=== PATIENT | female | born 1985 | race Caucasian/White ===

== ENCOUNTER 2018-06-18 22:38 | Inpatient (IN) | payer MEDICAID ==
[~2018-06-18] VITALS: Ht 171.4 cm; Wt 57.6 kg
[2018-06-18 22:50] VITALS: BP_SYST 124
[2018-06-18] MEDS ORDERED: NACL 0.9% 1,000 ML IV ONE (23:15)
[2018-06-18 23:45] LABS: BILIRUBIN,URINE NEGATIVE (NEGATIVE); BLOOD, URINE 2+ (NEGATIVE); CLARITY/URINE CLEAR (CLEAR); COLOR,URINE YELLOW (YELLOW); GLUCOSE,URINE NEGATIVE (NEGATIVE); KETONES,URINE NEGATIVE (NEGATIVE); LEUKOCYTE ESTERASE ,URINE 1+ (NEGATIVE); NITRITE, URINE NEGATIVE (NEGATIVE); PROTEIN URINE NEGATIVE (NEGATIVE)
[2018-06-18 23:55] LABS: BACTERIA,URINE RARE /HPF (None Seen)
[2018-06-19 00:02] LABS: CREATININE 0.52 mg/dL (0.55-1.30); POTASSIUM 3.5 mmol/L (3.5-5.1)
[2018-06-19 00:03] LABS: BASOPHILS # (AUTO) 0.1 K/uL (0.0-0.2); EOSINOPHILS # (AUTO) 0.4 K/uL (0.0-0.4); EOSINOPHILS % (AUTO) 4.7 % (0.0-4.0); HEMATOCRIT 40.7 % (36-48); HEMOGLOBIN 13.4 g/dL (12.0-16.0); LYMPHOCYTES # (AUTO) 2.7 K/uL (1.0-5.5); LYMPHOCYTES % (AUTO) 32.7 % (20.5-51.5); MEAN CORPUSCULAR HEMOGLOBIN 31 pg (27-31); MEAN CORPUSCULAR HGB CONC 33 % (32-36); MEAN CORPUSCULAR VOLUME 93 fL (79.0-98.0); MONOCYTES # (AUTO) 0.4 K/uL (0.0-1.0); MONOCYTES % (AUTO) 5.4 % (1.7-9.3); NEUTROPHILS # (AUTO) 4.6 K/uL (1.8-7.7); NEUTROPHILS % (AUTO) 56.2 % (40.0-70.0); PLATELET COUNT (AUTO) 244 K/uL (130-430); RED BLOOD CELL COUNT(AUTO) 4.39 MIL/uL (4.2-6.2); RED CELL DISTRIBUTION WIDTH 12.1 % (9.0-15.0); WHITE BLOOD COUNT (AUTO) 8.2 K/uL (4.8-10.8)
[2018-06-19] MEDS ORDERED: ACETAMINOPHEN 325 MG TABLET PO ONE (00:15)
[2018-06-19] MEDS ORDERED: ONDANSETRON HCL 4 MG/2 ML VIAL IVP ONE (00:15)
[2018-06-19 00:30] LABS: ALBUMIN 3.8 g/dL (3.4-4.8); TOTAL BILIRUBIN 0.4 mg/dL (0.0-1.0)
[2018-06-19] MEDS ORDERED: MORPHINE 4 MG/ML INJ. SYRINGE IVP ONE (04:30)
[2018-06-19] MEDS ORDERED: HYDROcodone/ACETAMIN 10-325 MG TAB PO ONE (05:15)
[2018-06-19] MEDS ORDERED: KETOROLAC TROMETHAMINE 30 MG VIAL IVP PRN ×2 (05:15→11:15)
[2018-06-19 05:48] VITALS: BP_SYST 111
[2018-06-19 05:53] VITALS: BP_SYST 108
[2018-06-19] MEDS: LR 1,000 ML IV SCH ×2 (06:09→14:00)
[2018-06-19 07:30] VITALS: BP_SYST 93
[2018-06-19] MEDS ORDERED: fentaNYL CITRATE/PF 100 MCG/2 ML AMP IVP ONE (10:50)
[2018-06-19] MEDS ORDERED: WATER FOR IRRIGATION,STERILE 1,000 ML IRRIG.SOLN IR ONE (10:50)
[2018-06-19] MEDS ORDERED: MIDAZOLAM HCL 5 MG/5 ML VIAL IVP ONE (10:50)
[2018-06-19] MEDS ORDERED: METHYLERGONOVINE MALEATE 0.2 MG/ML AMP IM ONE (10:50)
[2018-06-19] MEDS ORDERED: SEVOFLURANE 15 MIN GAS INH ONE (10:50)
[2018-06-19] MEDS ORDERED: SILVER NITRATE APPLICATOR 1 STICK STICK..EA. TP ONE (10:50)
[2018-06-19] MEDS ORDERED: ONDANSETRON HCL 4 MG/2 ML VIAL IVP PRN (11:15)
[2018-06-19] MEDS ORDERED: fentaNYL CITRATE/PF 100 MCG/2 ML AMP IVP PRN ×2 (11:15)
[2018-06-19] MEDS ORDERED: IBUP-1971 PO (11:39)
[2018-06-19] MEDS ORDERED: fentaNYL CITRATE/PF 100 MCG/2 ML AMP ONE (12:02)
[2018-06-19 12:32] VITALS: BP_SYST 122
[2018-06-19 12:51] VITALS: BP_SYST 122
== END 2018-06-19 15:40 | disposition home or self-care (01) | DRG 544 ==
LOC: SED 22:38 → SMU 06-19 05:09
PROVIDERS: ADMIT Obstetrics & Gynecology; ATTEND Obstetrics & Gynecology
PROC: 10D17ZZ Extraction of Products of Conception, Retained, Via Natural or Artificial Opening (ICD-10-PCS; principal; 2018-06-19 11:00)
DX: O03.4 Incomplete spontaneous abortion without complication (principal); F17.210 Nicotine dependence, cigarettes, uncomplicated; K21.9 Gastro-esophageal reflux disease without esophagitis; L40.9 Psoriasis, unspecified; O99.331 Smoking (tobacco) complicating pregnancy, first trimester; O99.611 Diseases of the digestive system complicating pregnancy, first trimester; O99.711 Diseases of the skin and subcutaneous tissue complicating pregnancy, first trimester
CPT/HCPCS: 36415; 76801; 76817; 80053; 81000-TC; 81025; 84702-TC; 85025; 86900; 86901; 88305; 96361; 96374; 99285; J2210; J2250; J2270; J2405; J3010; J7120

== ENCOUNTER 2019-07-25 15:46 | Emergency (ER) | payer MEDICAID ==
[~2019-07-25 15:46] MED LIST: IBUP-1971 PO
[2019-07-25 16:50] LABS: BASOPHILS # (AUTO) 0.1 K/uL (0.0-0.2); BASOPHILS % (AUTO) 0.8 % (0.0-2.0); EOSINOPHILS # (AUTO) 0.3 K/uL (0.0-0.4); EOSINOPHILS % (AUTO) 3.8 % (0.0-4.0); HEMATOCRIT 44.2 % (36-48); HEMOGLOBIN 14.6 g/dL (12.0-16.0); LYMPHOCYTES % (AUTO) 30.2 % (20.5-51.5); MEAN CORPUSCULAR HEMOGLOBIN 31 pg (27-31); MEAN CORPUSCULAR HGB CONC 33 % (32-36); MEAN CORPUSCULAR VOLUME 92 fL (79.0-98.0); MONOCYTES # (AUTO) 0.5 K/uL (0.0-1.0); MONOCYTES % (AUTO) 7.3 % (1.7-9.3); NEUTROPHILS # (AUTO) 3.9 K/uL (1.8-7.7); NEUTROPHILS % (AUTO) 57.9 % (40.0-70.0); PLATELET COUNT (AUTO) 220 K/uL (130-430); RED BLOOD CELL COUNT(AUTO) 4.79 MIL/uL (4.2-6.2); WHITE BLOOD COUNT (AUTO) 6.7 K/uL (4.8-10.8)
[2019-07-25 17:15] LABS: ANION GAP 8 (5-15); CALCIUM 9.1 mg/dL (8.4-11.0); CHLORIDE 101 mmol/L (98-107); CREATININE 0.64 mg/dL (0.55-1.30); GLUCOSE 91 mg/dL (70-99); POTASSIUM 3.9 mmol/L (3.5-5.1); SODIUM SERUM 134 mmol/L (136-145); UREA NITROGEN, BLOOD 11 mg/dL (8-21)
[2019-07-25 17:20] LABS: ALANINE AMINOTRANSFERASE 15 U/L (12-78); ALBUMIN 4.1 g/dL (3.4-4.8); ASPARTATE AMINOTRANSFERASE 17 U/L (10-37); TOTAL BILIRUBIN 0.6 mg/dL (0.0-1.0)
[2019-07-25 17:22] LABS: GFR AFRICAN AMERICAN 136 mL/min (>90)
== END 2019-07-25 17:17 | disposition left against medical advice (07) ==
LOC: SED 15:46
DX: I10 Essential (primary) hypertension (principal); Z53.21 Procedure and treatment not carried out due to patient leaving prior to being seen by health care provider
CPT/HCPCS: 36415; 80053; 84484; 85025

== ENCOUNTER 2021-09-23 19:08 | Emergency (ER) | payer MEDICAID ==
[~2021-09-23] VITALS: Ht 170.2 cm; Wt 72.6 kg
[2021-09-23 19:21] VITALS: BP_SYST 135
--- NOTE | 2021-09-23 20:36 | NUR ---
Pt brought by self,A&Ox4, pt presents to ER with sore throat since today, afebrile, skin pink and warm, cap refill <3, VSS.
--- NOTE | 2021-09-23 21:32 | NUR ---
Patient to [facility] for evaluation.
--- NOTE | 2021-09-23 21:48 | NUR ---
ER at bedside examining patient.
[2021-09-23] MEDS ORDERED: IBUPROFEN 800 MG TABLET PO ONE (22:00)
[2021-09-23] MEDS ORDERED: AMOXICILLIN 500 MG CAPSULE PO ONE (22:00)
[2021-09-23] MEDS ORDERED: DEXAMETHASONE SOD PHOSPHATE 10 MG/ML VIAL PO ONE (22:00)
--- NOTE | 2021-09-23 22:00 | NUR ---
Mary Grace godfrey in [facility] - 09/24/21 at 0144 by [email or web address] Patient to [facility] for evaluation.
[2021-09-23] MEDS ORDERED: AMOX500C2 PO (22:01)
[2021-09-24 00:28] VITALS: BP_SYST 128
--- NOTE | 2021-09-24 00:28 | NUR ---
Patient given written and verbal discharge instructions and verbalizes understanding. ER MD discussed with patient the results and treatment provided. Patient in stable condition. ID arm band removed. Rx of AMOXICILLIN given. Patient educated on pain management and to follow up with PMD. Pain Scale 0/10 Opportunity for questions provided and answered. Medication side effect fact sheet provided.
== END 2021-09-24 00:28 | disposition home or self-care (01) ==
LOC: SED 19:08
DX: J02.9 Acute pharyngitis, unspecified (principal); Z20.822 Contact with and (suspected) exposure to COVID-19
CPT/HCPCS: 36415; 86403; 87081; 87426; 99284; J1100

== ENCOUNTER 2022-11-09 17:34 | Emergency (ER) | payer MEDICAID ==
[~2022-11-09] VITALS: Ht 172.7 cm; Wt 72.6 kg
[~2022-11-09 17:34] MED LIST changes: +ACET-2634 PO; +AMOX500C2 PO; +ANT30 PO; +FAMO40TA71 PO; +HYDR-3917 PO; +ONDA-8 TL
[2022-11-09 17:45] VITALS: BP_SYST 139
--- NOTE | 2022-11-09 17:45 | NUR ---
Patient to ER bed 01 to gown for evaluation. Side rails up. Report given to AJITH BOWLING.
--- NOTE | 2022-11-09 17:50 | NUR ---
PT BIB FROM HOME C/O RIGHT SIDED TOOTH PAIN, STATES SHE HAS NEEDED TO GET DENTURES BUT IS AFRAID OF GOING TO THE DENTIST. PT STATES SHE HAS HAD PAIN X 5 DAYS. MULTIPLE BROKEN TEETH. PT IS AOX4, AMBULATORY, VSS
--- NOTE | 2022-11-09 18:10 | NUR ---
ER DR. SRTEET EXAMINING PT
[2022-11-09] MEDS ORDERED: CHLO473M5 PO ×2 (18:23→23:28)
[2022-11-09] MEDS ORDERED: OXYC-128 PO ×2 (18:23→23:28)
[2022-11-09] MEDS ORDERED: PENI250T2 PO ×2 (18:23→23:28)
[2022-11-09] MEDS ORDERED: IBUP-1970 PO (18:28)
[2022-11-09] MEDS ORDERED: OXYCODONE/ACETAMINOPHEN 5-325 TABLET PO ONE (18:30)
[2022-11-09] MEDS ORDERED: PENICILLIN V POTASSIUM 250 MG TABLET PO ONE (18:30)
[2022-11-09] MEDS ORDERED: LIDOCAINE VISCOUS 2%, 15 ML UDC MM ONE (18:30)
--- NOTE | 2022-11-09 18:53 | NUR ---
Patient given written and verbal discharge instructions and verbalizes understanding. ER MD discussed with patient the results and treatment provided. Patient in stable condition. ID arm band removed. Rx of PERIDEX, IBUPROFEN, PERCOCET AND PERIDEX given. Patient educated on pain management and to follow up with PMD. Pain Scale 0/10. Opportunity for questions provided and answered. Medication side effect fact sheet provided.
[2022-11-09 18:56] VITALS: BP_SYST 139
[2022-11-09] MEDS ORDERED: IBUP-1971 PO (23:28)
== END 2022-11-09 18:56 | disposition home or self-care (01) ==
LOC: SED 17:34
DX: K02.9 Dental caries, unspecified (principal); K08.89 Other specified disorders of teeth and supporting structures; I10 Essential (primary) hypertension; F17.210 Nicotine dependence, cigarettes, uncomplicated; Z79.899 Other long term (current) drug therapy
CPT/HCPCS: 99283; J2001

== ENCOUNTER 2022-11-09 22:44 | Emergency (ER) | payer MEDICAID ==
[~2022-11-09] VITALS: Ht 172.7 cm; Wt 73.0 kg
[~2022-11-09 22:44] MED LIST changes: +CHLO473M5 PO; +IBUP-1970 PO; +OXYC-128 PO; +PENI250T2 PO
--- NOTE | 2022-11-09 23:10 | NUR ---
ER examining patient in the triage room.
[2022-11-09 23:17] VITALS: BP_SYST 133
--- NOTE | 2022-11-09 23:17 | NUR ---
Patient triaged and placed in waiting room. VSS and patient appears in no acute distress at this time. Accompanied by fam member, awaiting available bed, and MD notified of need for MSE.
[2022-11-09] MEDS ORDERED: IBUP-1971 PO (23:28)
[2022-11-09] MEDS ORDERED: CHLO473M5 PO (23:28)
[2022-11-09] MEDS ORDERED: OXYC-128 PO (23:28)
[2022-11-09] MEDS ORDERED: PENI250T2 PO (23:28)
--- NOTE | 2022-11-09 23:34 | NUR ---
Note undone in EDM - 11/10/22 at 0044 by MICHELLE Patient given written and verbal discharge instructions and verbalizes understanding. ER discussed with patient the results and treatment provided. Patient in stable condition. ID arm band removed. Rx of Peridex,Ibuprofen,Percocet,Penicillin V given. Patient educated on pain management and to follow up with PMD. Pain Scale 6/10. Opportunity for questions provided and answered. Medication side effect fact sheet provided.
--- NOTE | 2022-11-10 00:20 | NUR ---
Patient to ER bed h1 to gown for evaluation. Side rails up.
[2022-11-10] MEDS ORDERED: AMOXICILLIN/POTASSIUM CLAV 875 MG TABLET PO ONE (00:30)
[2022-11-10] MEDS ORDERED: HYDROcodone/ACETAMIN 5-325 MG TAB (NORCO/ VICODIN) PO ONE (00:30)
--- NOTE | 2022-11-10 00:41 | NUR ---
Pt states pain free.Denies Morphine ordered by Dr Rodriguez.Dr Rodriguez made notified.
[2022-11-10 00:43] VITALS: BP_SYST 133
--- NOTE | 2022-11-10 00:43 | NUR ---
Patient given written and verbal discharge instructions and verbalizes understanding. ER MD discussed with patient the results and treatment provided. Patient in stable condition. ID arm band removed. Rx of Peridex,Ibuprofen,Percocet,Penicillin V given. Patient educated on pain management and to follow up with PMD. Pain Scale 6/10. Opportunity for questions provided and answered. Medication side effect fact sheet provided.
[2022-11-10] MEDS ORDERED: ONDANSETRON 4 MG ODT TAB PO ONE (00:45)
[2022-11-10] MEDS ORDERED: MORPHINE 4 MG INJ. 4 MG/ML VIAL IM ONE (00:45)
== END 2022-11-10 00:43 | disposition home or self-care (01) ==
LOC: SED 22:44
DX: K02.9 Dental caries, unspecified (principal); K08.89 Other specified disorders of teeth and supporting structures; Z76.0 Encounter for issue of repeat prescription; Z79.899 Other long term (current) drug therapy
CPT/HCPCS: 99283; J2270

== ENCOUNTER 2022-11-14 22:35 | Emergency (ER) | payer MEDICAID ==
[~2022-11-14] VITALS: Ht 172.7 cm; Wt 69.9 kg
[2022-11-14 22:55] VITALS: BP_SYST 152
[2022-11-15] VITALS: BP_SYST 137
== END 2022-11-15 | disposition home or self-care (01) ==
LOC: SED 22:35
DX: M79.662 Pain in left lower leg (principal); F17.200 Nicotine dependence, unspecified, uncomplicated; Z79.899 Other long term (current) drug therapy
CPT/HCPCS: 93971; 99284

== ENCOUNTER 2023-04-25 17:07 | Inpatient (IN) | payer MEDICAID ==
[~2023-04-25] VITALS: Ht 172.7 cm; Wt 68.9 kg
[~2023-04-25 17:07] MED LIST changes: +AMOX-423 PO; +CLIN-142 PO; +CORTEARS EACH EAR; +IBUP-1969 PO; +NABU-140 PO; +PRED20TA PO
[2023-04-25 17:14] VITALS: BP_SYST 156; PULSE 69; RESP 18; TEMP 98.3; O2SAT 100
[2023-04-25] MEDS ORDERED: KETOROLAC TROMETHAMINE 60 MG/2 ML VIAL IM ONE (17:45)
[2023-04-25] MEDS ORDERED: LISINOPRIL 10 MG TABLET (PRINIVIL) PO ONE (17:45)
[2023-04-25] MEDS ORDERED: ASPIRIN 81 MG TAB.CHEW PO ONE (17:45)
[2023-04-25 18:18] LABS: BASOPHILS % (AUTO) 0.5 % (0.0-2.0); EOSINOPHILS # (AUTO) 0.2 K/uL (0.0-0.4); EOSINOPHILS % (AUTO) 2.9 % (0.0-4.0); HEMATOCRIT 53.7 % (36-48); HEMOGLOBIN 17.8 g/dL (12.0-16.0); LYMPHOCYTES # (AUTO) 2.3 K/uL (1.0-5.5); LYMPHOCYTES % (AUTO) 33.4 % (20.5-51.5); MEAN CORPUSCULAR HEMOGLOBIN 32 pg (27-31); MEAN CORPUSCULAR HGB CONC 33 % (32-36); MEAN CORPUSCULAR VOLUME 96 fL (79.0-98.0); MONOCYTES # (AUTO) 0.5 K/uL (0.0-1.0); NEUTROPHILS # (AUTO) 3.8 K/uL (1.8-7.7); NEUTROPHILS % (AUTO) 55.2 % (40.0-70.0); PLATELET COUNT (AUTO) 252 K/uL (130-430); RED BLOOD CELL COUNT(AUTO) 5.61 MIL/uL (4.2-6.2); RED CELL DISTRIBUTION WIDTH 14.1 % (9.0-15.0); WHITE BLOOD COUNT (AUTO) 6.8 K/uL (4.8-10.8)
[2023-04-25 18:27] LABS: CALCIUM 9.4 mg/dL (8.4-11.0); CREATININE 0.69 mg/dL (0.55-1.30); POTASSIUM 3.2 mmol/L (3.5-5.1)
[2023-04-25 18:35] LABS: ALBUMIN 3.4 g/dL (3.4-4.8); BILIRUBIN,DIRECT 0.2 mg/dL (0.0-0.3); TOTAL BILIRUBIN 0.8 mg/dL (0.0-1.0); TOTAL PROTEIN, SERUM 6.5 g/dL (6.4-8.3)
[2023-04-25] MEDS ORDERED: NITROGLYCERIN 0.4 MG TAB.SUBL SL ONE (18:45)
[2023-04-25] MEDS ORDERED: ACETAMINOPHEN 500 MG TABLET PO ONE (19:15)
[2023-04-25] MEDS ORDERED: NITROGLYCERIN 1 INCH (GM) OINT. TP ONE (19:15)
[2023-04-25] MEDS ORDERED: POTASSIUM CHLORIDE 20 MEQ TABLET.ER PO ONE (19:45)
[2023-04-25] MEDS ORDERED: ATORVASTATIN 20 MG TABLET PO SCH (21:00)
[2023-04-25] MEDS ORDERED: ENOXAPARIN SODIUM 60 MG/0.6 ML SYRINGE SUBCUT ONE (21:15)
[2023-04-25] MEDS ORDERED: ATORVASTATIN 20 MG TABLET ONE (22:29)
[2023-04-25 22:40] VITALS: BP_SYST 136; PULSE 85; RESP 20; TEMP 97.3; O2SAT 99
[2023-04-25 23:23] VITALS: BP_SYST 136; PULSE 70; RESP 20; TEMP 97.3; O2SAT 99
[2023-04-26] VITALS (7 sets, daily range): BP systolic 127–152; PULSE 56–61; RESP 16–20; TEMP 97.7–99.3; O2SAT 98–100
[2023-04-26 06:49] LABS: BASOPHILS % (AUTO) 0.4 % (0.0-2.0); EOSINOPHILS # (AUTO) 0.3 K/uL (0.0-0.4); EOSINOPHILS % (AUTO) 4.9 % (0.0-4.0); HEMATOCRIT 51.8 % (36-48); HEMOGLOBIN 16.9 g/dL (12.0-16.0); LYMPHOCYTES # (AUTO) 2.2 K/uL (1.0-5.5); LYMPHOCYTES % (AUTO) 38.1 % (20.5-51.5); MEAN CORPUSCULAR HEMOGLOBIN 31 pg (27-31); MEAN CORPUSCULAR HGB CONC 33 % (32-36); MEAN CORPUSCULAR VOLUME 96 fL (79.0-98.0); MONOCYTES # (AUTO) 0.6 K/uL (0.0-1.0); MONOCYTES % (AUTO) 9.4 % (1.7-9.3); NEUTROPHILS # (AUTO) 2.8 K/uL (1.8-7.7); NEUTROPHILS % (AUTO) 47.2 % (40.0-70.0); PLATELET COUNT (AUTO) 214 K/uL (130-430); RED BLOOD CELL COUNT(AUTO) 5.37 MIL/uL (4.2-6.2); RED CELL DISTRIBUTION WIDTH 14.1 % (9.0-15.0); WHITE BLOOD COUNT (AUTO) 5.8 K/uL (4.8-10.8)
[2023-04-26] MEDS ORDERED: NALOXONE HCL 0.4 MG/ML AMP (NARCAN) IVP PRN (07:15)
[2023-04-26] MEDS ORDERED: ONDANSETRON HCL 4 MG/2 ML VIAL IVP PRN (07:15)
[2023-04-26] MEDS ORDERED: NITROGLYCERIN 0.4 MG TAB.SUBL SL PRN (07:15)
[2023-04-26] MEDS: MORPHINE 2 MG/ML INJ. SYRINGE IVP PRN ×2 (07:21→17:55)
[2023-04-26 07:24] LABS: ALBUMIN 2.9 g/dL (3.4-4.8); CALCIUM 8.8 mg/dL (8.4-11.0); CREATININE 0.67 mg/dL (0.55-1.30); POTASSIUM 3.1 mmol/L (3.5-5.1); TOTAL BILIRUBIN 0.8 mg/dL (0.0-1.0); TOTAL PROTEIN, SERUM 5.8 g/dL (6.4-8.3)
[2023-04-26] MEDS ORDERED: LORazepam 2 MG/ML VIAL IM PRN (09:00)
[2023-04-26] MEDS ORDERED: POTASSIUM CHLORIDE 20 MEQ/PKT PACKET PO ONE ×2 (09:00→09:15)
[2023-04-26] MEDS ORDERED: hydrALAZINE HCL 20 MG/ML VIAL IVP PRN (09:00)
[2023-04-26 09:44] LABS: CHOLESTEROL 131 mg/dL (<200); HDL CHOLESTEROL 44 mg/dL (>55); TRIGLYCERIDES 104 mg/dL (30-150)
[2023-04-26 11:11] LABS: BILIRUBIN,URINE NEGATIVE (NEGATIVE); CLARITY/URINE SL CLOUDY (CLEAR); COLOR,URINE YELLOW (YELLOW); GLUCOSE,URINE NEGATIVE (NEGATIVE); KETONES,URINE NEGATIVE (NEGATIVE); LEUKOCYTE ESTERASE ,URINE TRACE (NEGATIVE); NITRITE, URINE NEGATIVE (NEGATIVE); PROTEIN URINE NEGATIVE (NEGATIVE); UROBILINOGEN,URINE 0.2 (0.2-1.0)
[2023-04-26 11:14] LABS: BLOOD, URINE TRACE (NEGATIVE)
[2023-04-26 11:28] LABS: BARBITURATE, URINE NEGATIVE (NEG <=200); BENZODIAZEPINE, URINE NEGATIVE (NEG <=150); COCAINE, URINE NEGATIVE (NEG <=150); METHAMPHETAMINES SCREEN,URINE NEGATIVE (NEG <=500); URINE AMPHETAMINE NEGATIVE (NEG <=500); URINE METHADONE NEGATIVE (NEG <=200)
[2023-04-26 11:29] LABS: CANNABINOID, URINE NEGATIVE (NEG <=50); OPIATE, URINE POSITIVE (NEG <=100); PHENCYCLIDINE SCREEN,URINE NEGATIVE (NEG <=25); URINE OXYCODONE SCREEN NEGATIVE (NEG <=100); URINE PROPOXYPHENE SCREEN NEGATIVE (NEG <=300)
[2023-04-26 11:30] LABS: UR TRICYCLIC ANTIDEPRESSANTS NEGATIVE (NEG <=300)
[2023-04-26] MEDS: NICOTINE 21 MG/24 HR PATCH.TD24 TD SCH (12:08)
[2023-04-26] MEDS: THIAMINE HCL 100 MG TABLET PO SCH (12:08)
[2023-04-26] MEDS: MULTIVITAMINS TAB 1 TABLET PO SCH (12:08)
[2023-04-26] MEDS: METOPROLOL SUCCINATE 25 MG TAB.SR.24H (TOPROL XL) PO SCH (12:08)
[2023-04-26 12:20] LABS: BACTERIA,URINE MODERATE /HPF (None Seen)
[2023-04-26] MEDS ORDERED: cefTRIAXone 1 GM IVPB PREMIX 50 ML IV SCH (18:00)
[2023-04-26] MEDS ORDERED: LISINOPRIL 10 MG TABLET (PRINIVIL) PO ONE (21:00)
[2023-04-26] MEDS ORDERED: ATORVASTATIN 20 MG TABLET PO SCH (21:00)
[2023-04-26] MEDS ORDERED: ACETAMINOPHEN 325 MG TABLET PO PRN (22:00)
[2023-04-27] VITALS: BP_SYST 140; PULSE 60; RESP 16; TEMP 98; O2SAT 98
[2023-04-27] MEDS ORDERED: METO25TA3 PO (09:21)
[2023-04-27] MEDS ORDERED: LEVO-62 PO (09:21)
[2023-04-27 09:25] VITALS: O2SAT 97
[2023-04-27] MEDS: MULTIVITAMINS TAB 1 TABLET PO SCH (09:25)
[2023-04-27] MEDS: THIAMINE HCL 100 MG TABLET PO SCH (09:25)
[2023-04-27] MEDS: METOPROLOL SUCCINATE 25 MG TAB.SR.24H (TOPROL XL) PO SCH (09:25)
[2023-04-27] MEDS: NICOTINE 21 MG/24 HR PATCH.TD24 TD SCH (09:46)
[2023-04-27 12:01] VITALS: BP_SYST 140; PULSE 65; RESP 18; TEMP 98.1; O2SAT 98
== END 2023-04-27 12:30 | disposition home or self-care (01) | DRG 243 ==
LOC: SED 17:07 → STU 20:19
PROVIDERS: ADMIT General Practice; ATTEND General Practice
DX: K21.9 Gastro-esophageal reflux disease without esophagitis (principal); E87.1 Hypo-osmolality and hyponatremia; N39.0 Urinary tract infection, site not specified; D75.1 Secondary polycythemia; F10.10 Alcohol abuse, uncomplicated; Y90.9 Presence of alcohol in blood, level not specified; E87.6 Hypokalemia; I10 Essential (primary) hypertension; F17.200 Nicotine dependence, unspecified, uncomplicated; Z79.2 Long term (current) use of antibiotics; Z79.899 Other long term (current) drug therapy; Z90.710 Acquired absence of both cervix and uterus; Z85.41 Personal history of malignant neoplasm of cervix uteri; Z82.49 Family history of ischemic heart disease and other diseases of the circulatory system; Z79.1 Long term (current) use of non-steroidal anti-inflammatories (NSAID)
CPT/HCPCS: 36415; 71045; 80048; 80053; 80061; 80076; 80307; 81000; 81001; 81015; 83735; 83880; 84484; 85025; 87086; 93005; 93017; 93306; 96372; 99285; G0378; J0696; J1650; J1885; J2060; J2270

== ENCOUNTER 2023-06-30 02:37 | Emergency (ER) | payer MEDICAID ==
[~2023-06-30] VITALS: Ht 170.2 cm; Wt 68.0 kg
[~2023-06-30 02:37] MED LIST changes: -ACET-2634 PO; -AMOX-423 PO; -AMOX500C2 PO; -ANT30 PO; -CHLO473M5 PO; -CLIN-142 PO; -CORTEARS EACH EAR; -FAMO40TA71 PO; -HYDR-3917 PO; -IBUP-1969 PO; -IBUP-1970 PO; -IBUP-1971 PO; +LEVO-62 PO; +METO25TA3 PO; -NABU-140 PO; -ONDA-8 TL; -OXYC-128 PO; -PENI250T2 PO; -PRED20TA PO
[2023-06-30 02:41] VITALS: BP_SYST 91; PULSE 78; RESP 21; TEMP 97.6; O2SAT 98
[2023-06-30] MEDS ORDERED: KETOROLAC TROMETHAMINE 30 MG VIAL IVP ONE (03:00)
[2023-06-30] MEDS ORDERED: MORPHINE 4 MG INJ. 4 MG/ML VIAL IVP ONE (03:00)
[2023-06-30] MEDS ORDERED: NACL 0.9% 1,000 ML IV ONE (03:00)
[2023-06-30 03:26] LABS: BASOPHILS % (AUTO) 0.8 % (0.0-2.0); EOSINOPHILS # (AUTO) 0.3 K/uL (0.0-0.4); EOSINOPHILS % (AUTO) 5.3 % (0.0-4.0); HEMATOCRIT 55.6 % (36-48); HEMOGLOBIN 19.1 g/dL (12.0-16.0); LYMPHOCYTES # (AUTO) 2.1 K/uL (1.0-5.5); MEAN CORPUSCULAR HEMOGLOBIN 33 pg (27-31); MEAN CORPUSCULAR HGB CONC 34 % (32-36); MEAN CORPUSCULAR VOLUME 96 fL (79.0-98.0); MONOCYTES # (AUTO) 0.6 K/uL (0.0-1.0); MONOCYTES % (AUTO) 10.5 % (1.7-9.3); NEUTROPHILS # (AUTO) 2.2 K/uL (1.8-7.7); NEUTROPHILS % (AUTO) 42.4 % (40.0-70.0); PLATELET COUNT (AUTO) 225 K/uL (130-430); RED BLOOD CELL COUNT(AUTO) 5.82 MIL/uL (4.2-6.2); RED CELL DISTRIBUTION WIDTH 15.4 % (9.0-15.0); WHITE BLOOD COUNT (AUTO) 5.2 K/uL (4.8-10.8)
[2023-06-30 03:42] LABS: CALCIUM 9.3 mg/dL (8.4-11.0); CREATININE 0.75 mg/dL (0.55-1.30); POTASSIUM 4.2 mmol/L (3.5-5.1)
[2023-06-30] MEDS ORDERED: ONDANSETRON HCL 4 MG/2 ML VIAL ONE (03:44)
[2023-06-30] MEDS ORDERED: ONDANSETRON HCL 4 MG/2 ML VIAL IVP ONE (03:45)
[2023-06-30 03:47] LABS: ALBUMIN 3.8 g/dL (3.4-4.8); BILIRUBIN,DIRECT 0.2 mg/dL (0.0-0.3); TOTAL BILIRUBIN 0.7 mg/dL (0.0-1.0); TOTAL PROTEIN, SERUM 7.5 g/dL (6.4-8.3)
[2023-06-30 04:55] LABS: BILIRUBIN,URINE NEGATIVE (NEGATIVE); BLOOD, URINE NEGATIVE (NEGATIVE); CLARITY/URINE CLEAR (CLEAR); COLOR,URINE YELLOW (YELLOW); GLUCOSE,URINE NEGATIVE (NEGATIVE); KETONES,URINE NEGATIVE (NEGATIVE); LEUKOCYTE ESTERASE ,URINE NEGATIVE (NEGATIVE); NITRITE, URINE NEGATIVE (NEGATIVE); PROTEIN URINE NEGATIVE (NEGATIVE); UROBILINOGEN,URINE 0.2 (0.2-1.0)
[2023-06-30] MEDS ORDERED: TRAM50TA2 PO (08:10)
[2023-06-30] MEDS ORDERED: IBUP-1969 PO (08:10)
[2023-06-30 11:31] VITALS: BP_SYST 133; PULSE 90; RESP 18; TEMP 97.9; O2SAT 96
== END 2023-06-30 08:21 | disposition home or self-care (01) ==
LOC: SED 02:37
DX: N83.209 Unspecified ovarian cyst, unspecified side (principal); R10.31 Right lower quadrant pain; I10 Essential (primary) hypertension; Z88.0 Allergy status to penicillin; Z88.1 Allergy status to other antibiotic agents; Z85.41 Personal history of malignant neoplasm of cervix uteri; Z79.899 Other long term (current) drug therapy
CPT/HCPCS: 99285; 74176; 96374; 96375; 96361; 80076; 80048; 81001; 85025; 36415; 76376; 81003; J1885; J2405; J2270; J7030

== ENCOUNTER 2024-02-22 18:50 | Emergency (ER) | payer MEDICAID ==
[~2024-02-22] VITALS: Ht 170.2 cm; Wt 70.8 kg
[~2024-02-22 18:50] MED LIST changes: +IBUP-1969 PO; +TRAM50TA2 PO
[2024-02-22 19:55] VITALS: BP_SYST 141; PULSE 75; RESP 18; TEMP 97.9; O2SAT 99
[2024-02-22] MEDS ORDERED: DICL50TA9 PO (22:54)
[2024-02-22 23:05] VITALS: BP_SYST 129; PULSE 77; RESP 18; TEMP 98; O2SAT 99
== END 2024-02-22 23:08 | disposition home or self-care (01) ==
LOC: SED 18:50
DX: S60.212A Contusion of left wrist, initial encounter (principal); I10 Essential (primary) hypertension; Z85.41 Personal history of malignant neoplasm of cervix uteri; Z88.0 Allergy status to penicillin; Z88.1 Allergy status to other antibiotic agents; Z79.899 Other long term (current) drug therapy; Z79.2 Long term (current) use of antibiotics; W18.39XA Other fall on same level, initial encounter; Y93.89 Activity, other specified; Y92.89 Other specified places as the place of occurrence of the external cause; Y99.8 Other external cause status
CPT/HCPCS: 99283